=== PATIENT | female | born 1995 | race Asian ===

== ENCOUNTER 2022-02-02 13:31 | Emergency (ER) | payer OTHER ==
[~2022-02-02] VITALS: Ht 154.9 cm; Wt 59.0 kg
[2022-02-02] MEDS ORDERED: CELEBREX100 MG PO (19:05)
== END 2022-02-02 20:16 ==
LOC: ER 13:31
DX: S30.1XXA Contusion of abdominal wall, initial encounter (principal); V49.9XXA Car occupant (driver) (passenger) injured in unspecified traffic accident, initial encounter; Y93.9 Activity, unspecified; Y92.413 State road as the place of occurrence of the external cause; Y99.9 Unspecified external cause status